=== PATIENT | male | born 1970 | race African-American/Black ===

== ENCOUNTER → 2018-05-13 | Outpatient (REF) | payer OTHER ==
[2018-05-13 18:18] LABS: APPEARANCE, URINE TURBID (CLEAR); BACTERIA, URINE AUTO NEGATIVE (NEGATIVE); BILIRUBIN, URINE AUTO NEGATIVE (NEGATIVE); BLOOD, URINE BLOOD NEGATIVE (NEGATIVE); COLOR, URINE YELLOW (YELLOW); GLUCOSE, URINE (UA) AUTO NEGATIVE (NEGATIVE); KETONE, URINE AUTO NEGATIVE (NEGATIVE); LEUKOCYTE ESTERASE, URINE AUTO NEGATIVE (NEGATIVE); NITRITE, URINE AUTO NEGATIVE (NEGATIVE); PROTEIN, URINE AUTO 1+ mg/dL (NEGATIVE); RBC, URINE AUTO 1 /HPF (0-3); SQUAMOUS EPITHELIAL CELL UR AU 0 /HPF (0-6); UROBILINOGEN, URINE AUTO 0.2 mg/dL (0.0-2.0); WBC, URINE AUTO 2 /HPF (0-3)
== END ==
LOC: M SMT 16:42
PROVIDERS: ATTEND Nurse Practitioner Family
DX: R32 Unspecified urinary incontinence (principal)
CPT/HCPCS: 51798; 81001; 87086; G0463

== ENCOUNTER → 2018-07-05 | Outpatient (CLI) | payer OTHER | LOC: M SMT 11:10 | PROVIDERS: ATTEND Nurse Practitioner Family | DX: C61 Malignant neoplasm of prostate (principal) ==

== ENCOUNTER → 2018-07-20 | Outpatient (CLI) | payer OTHER ==
--- NOTE | 2018-07-21 05:22 | REP ---
Clinical: Left groin pain. Technique: Real time abarca scale and color Doppler evaluation using linear high frequency transducer. Findings: The right testicle measures 4.0 x 2.0 x 3.5 cm and appears normal in contour, size, echogenicity, and vascularity. Incidental right epididymal cyst measures 5 x 2 x 3 mm. No hydrocele. No varicocele. The left testicle measures 4.9 x 2.0 x 3.0 cm and includes a small 1.6 mm hyperechoic focus with adjacent vessel otherwise nonspecific in appearance. Left epididymis appears normal. No hydrocele. No varicocele. Impression: 1. Small 1.6 mm hyperechoic focus in the left testicle with adjacent vessel is nonspecific and of uncertain clinical significance. Consider follow-up examination at 3-6 months. Electronically Signed by Tee Barnett MD 07/21/2018 05:14 A
== END ==
LOC: M RAD 12:02
PROVIDERS: ATTEND Nurse Practitioner Family
DX: R10.30 Lower abdominal pain, unspecified (principal); N50.3 Cyst of epididymis; N50.89 Other specified disorders of the male genital organs

== ENCOUNTER → 2018-09-20 | Outpatient (REF) ==
--- NOTE | 2018-09-21 03:17 | REP ---
Clinical: Left shoulder pain. Technique: Internal rotation, external rotation, and Y view of the left shoulder. Findings: Subtle irregularity along the anterior/superior margin of the ossified glenoid rim cannot be excluded. The humeral head appears intact and normal. Subacromial space is normal. The acromioclavicular joint is age-appropriate. Surrounding soft tissues are unremarkable. Impression: Subtle irregularity involving the anterosuperior aspect of the glenoid rim cannot be excluded. Otherwise normal, age-appropriate examination. Electronically Signed by Tee Barnett MD 09/21/2018 03:08 A
--- NOTE | 2018-09-21 03:19 | REP ---
Clinical: Lower back pain. Technique: AP, lateral, coned-down views of the lumbosacral spine. Findings: Alignment and lordosis maintained. No acute fracture / compression injury or subluxation. Mild multilevel degenerative change include subtle endplate sclerosis with minimal disc space narrowing at L4-5 and L5-S1. Impression: Mild degenerative spondylosis. Electronically Signed by Tee Barnett MD 09/21/2018 03:11 A
== END ==
LOC: M SMT 13:08
PROVIDERS: ATTEND Internal Medicine
DX: Z02.71 Encounter for disability determination (principal)

== ENCOUNTER → 2019-01-12 | Outpatient (CLI) | payer OTHER | LOC: M SMT 14:55 | PROVIDERS: ATTEND Nurse Practitioner Family | DX: C61 Malignant neoplasm of prostate (principal) ==

== ENCOUNTER → 2019-07-20 | Outpatient (REF) | payer OTHER | LOC: M LABSMT 09:15 | PROVIDERS: ATTEND Nurse Practitioner Family | DX: C61 Malignant neoplasm of prostate (principal) ==

== ENCOUNTER → 2019-08-09 | Outpatient (CLI) | payer OTHER ==
--- NOTE | 2019-08-09 14:48 | REP ---
Clinical: Follow up abnormal left testicular finding. Technique: Real time abarca scale and color Doppler evaluation using linear high frequency transducer. Comparison: 07/20/2018. Findings: The right testicle and epididymis are essentially normal and stable without evidence for mass lesion, infectious/inflammatory process, or torsion. Current examination demonstrates small 2 mm epididymal head cyst. No varicoceles. Mild tubular ectasia of the vas deferens noted. No right hydrocele. The left testicle and epididymis are stable and essentially normal without significant mass lesion, infectious/inflammatory process, or torsion. The previously identified 2 mm hyperechoic focus is again identified and unchanged. This may represent small nonshadowing calcification. Epididymal head cyst measures 6 mm. Mild tubular ectasia of the vas deferens is noted. No varicoceles. No hydrocele. Right testicle measures 4.8 x 2.3 x 3.3 cm. Left testicle measures 5.0 x 3.0 x 3.1 cm. Impression: 1. Previously noted 2 mm hyperechoic focus in the left testicle remains stable and is likely insignificant, possibly representing small nonshadowing calcification. 2. Otherwise, relatively nonspecific and insignificant findings as described above. Electronically Signed by Tee Barnett MD 08/09/2019 02:40 P
== END ==
LOC: M RAD 13:40
PROVIDERS: ATTEND Nurse Practitioner Family
DX: N50.9 Disorder of male genital organs, unspecified (principal)

== ENCOUNTER → 2020-02-09 | Outpatient (CLI) | payer OTHER | LOC: M PLALAB 09:12 | PROVIDERS: ATTEND Nurse Practitioner Family | DX: C61 Malignant neoplasm of prostate (principal) ==

== ENCOUNTER → 2020-08-08 | Outpatient (REF) | payer OTHER | LOC: M PLALAB 13:46 | PROVIDERS: ATTEND Urology | DX: C61 Malignant neoplasm of prostate (principal) ==

== ENCOUNTER → 2021-08-20 | Outpatient (CLI) | payer OTHER | LOC: M PLALAB 09:51 | PROVIDERS: ATTEND Urology | DX: C61 Malignant neoplasm of prostate (principal) ==

== ENCOUNTER → 2021-10-02 | Outpatient (CLI) | payer OTHER ==
[~2021-10-02] VITALS: Ht 180.3 cm; Wt 98.8 kg
[~2021-10-02] MED LIST: ALBU8.5H INH; AMLO1TAB25 PO; HYDR-3490 PO; HYDR-643 PO; LORA-622 PO; METO1TAB7 PO; NAPR-855 PO; OXYB10TA23 PO; SERT-141 PO; TERB250T91 PO; VIAG100T PO; VITA100093 PO
== END ==
LOC: M ONCR 13:41
PROVIDERS: ATTEND General Practice
DX: C61 Malignant neoplasm of prostate (principal); R97.21 Rising PSA following treatment for malignant neoplasm of prostate; N52.31 Erectile dysfunction following radical prostatectomy; N39.3 Stress incontinence (female) (male); Z90.79 Acquired absence of other genital organ(s); Z79.51 Long term (current) use of inhaled steroids; Z79.899 Other long term (current) drug therapy

== ENCOUNTER → 2021-10-27 | Outpatient (CLI) | payer OTHER | LOC: M PLALAB 10:51 | PROVIDERS: ATTEND General Practice | DX: C61 Malignant neoplasm of prostate (principal) ==

== ENCOUNTER → 2021-11-06 | Outpatient (CLI) | payer OTHER | LOC: M ONCR 09:19 | PROVIDERS: ATTEND General Practice | DX: R97.21 Rising PSA following treatment for malignant neoplasm of prostate (principal); Z85.46 Personal history of malignant neoplasm of prostate; Z79.899 Other long term (current) drug therapy; Z90.79 Acquired absence of other genital organ(s) ==

== ENCOUNTER → 2022-01-23 | Outpatient (CLI) | payer OTHER | LOC: M PLALAB 11:38 | PROVIDERS: ATTEND General Practice | DX: C61 Malignant neoplasm of prostate (principal) ==

== ENCOUNTER → 2022-01-28 | Outpatient (CLI) | payer OTHER | LOC: M ONCR 13:56 | PROVIDERS: ATTEND General Practice | DX: Z08 Encounter for follow-up examination after completed treatment for malignant neoplasm (principal); Z85.46 Personal history of malignant neoplasm of prostate; R97.21 Rising PSA following treatment for malignant neoplasm of prostate; Z79.1 Long term (current) use of non-steroidal anti-inflammatories (NSAID); Z79.51 Long term (current) use of inhaled steroids; Z79.899 Other long term (current) drug therapy; Z90.79 Acquired absence of other genital organ(s) ==

== ENCOUNTER → 2022-07-27 | Outpatient (CLI) | payer OTHER ==
[~2022-07-27] MED LIST changes: +OXYB15TA14 PO
== END ==
LOC: M PLALAB 08:27
PROVIDERS: ATTEND General Practice
DX: Z80.42 Family history of malignant neoplasm of prostate (principal)

== ENCOUNTER → 2022-07-28 | Outpatient (CLI) | payer OTHER | LOC: M ONCR 13:29 | PROVIDERS: ATTEND General Practice | DX: C61 Malignant neoplasm of prostate (principal); R32 Unspecified urinary incontinence; Z79.899 Other long term (current) drug therapy; Z90.79 Acquired absence of other genital organ(s) ==

== ENCOUNTER → 2023-01-28 | Outpatient (CLI) | payer OTHER ==
[~2023-01-28] MED LIST changes: +AMLO1TAB24 PO; +LOSA100T46 PO
== END ==
LOC: M ONCR 10:54
PROVIDERS: ATTEND General Practice
DX: C61 Malignant neoplasm of prostate (principal); R97.20 Elevated prostate specific antigen [PSA]; R03.0 Elevated blood-pressure reading, without diagnosis of hypertension; Z71.2 Person consulting for explanation of examination or test findings; Z79.899 Other long term (current) drug therapy; Z90.79 Acquired absence of other genital organ(s)
CPT/HCPCS: 36415; 84153; G0463

== ENCOUNTER → 2023-03-08 | Outpatient (CLI) | payer OTHER | LOC: M PLALAB 10:59 | PROVIDERS: ATTEND Urology | DX: C61 Malignant neoplasm of prostate (principal) ==

== ENCOUNTER → 2023-07-28 | Outpatient (CLI) | payer OTHER | LOC: M PLALAB 08:49 | PROVIDERS: ATTEND General Practice | DX: C61 Malignant neoplasm of prostate (principal) ==

== ENCOUNTER → 2023-07-29 | Outpatient (CLI) | payer OTHER | LOC: M ONCR 09:53 | PROVIDERS: ATTEND General Practice | DX: Z08 Encounter for follow-up examination after completed treatment for malignant neoplasm (principal); Z85.46 Personal history of malignant neoplasm of prostate; R97.21 Rising PSA following treatment for malignant neoplasm of prostate; Z71.2 Person consulting for explanation of examination or test findings; Z79.1 Long term (current) use of non-steroidal anti-inflammatories (NSAID); Z79.899 Other long term (current) drug therapy; Z90.79 Acquired absence of other genital organ(s) ==

== ENCOUNTER → 2023-08-24 | Outpatient (CLI) | payer OTHER | LOC: M RAD 13:16 | PROVIDERS: ATTEND Internal Medicine Pulmonary Disease | DX: R06.02 Shortness of breath (principal) ==

== ENCOUNTER → 2023-09-07 | Outpatient (CLI) | payer OTHER | LOC: M CARPUL 12:21 | PROVIDERS: ATTEND Internal Medicine Pulmonary Disease | DX: R06.02 Shortness of breath (principal) ==

== ENCOUNTER → 2023-09-16 | Outpatient (CLI) | payer OTHER ==
[~2023-09-16] MED LIST changes: +METHACHOLINE KIT (6 VIAL.NEB PREMIX) INH ONE
== END ==
LOC: M CARPUL 13:50
PROVIDERS: ATTEND Internal Medicine Pulmonary Disease
DX: R06.02 Shortness of breath (principal)
CPT/HCPCS: 94070; 95070; J7674

== ENCOUNTER → 2024-01-10 | Outpatient (CLI) | payer OTHER ==
[~2024-01-10] MED LIST changes: -METHACHOLINE KIT (6 VIAL.NEB PREMIX) INH ONE
== END ==
LOC: M RAD 14:59
PROVIDERS: ATTEND Internal Medicine Pulmonary Disease
DX: R91.8 Other nonspecific abnormal finding of lung field (principal)

== ENCOUNTER → 2024-01-28 | Outpatient (CLI) | payer OTHER | LOC: M PLALAB 13:47 | PROVIDERS: ATTEND General Practice | DX: C61 Malignant neoplasm of prostate (principal) ==

== ENCOUNTER → 2024-02-01 | Outpatient (CLI) | payer OTHER | LOC: M ONCR 09:45 | PROVIDERS: ATTEND General Practice | DX: Z08 Encounter for follow-up examination after completed treatment for malignant neoplasm (principal); I12.9 Hypertensive chronic kidney disease with stage 1 through stage 4 chronic kidney disease, or unspecified chronic kidney disease; N18.9 Chronic kidney disease, unspecified; R73.03 Prediabetes; R97.21 Rising PSA following treatment for malignant neoplasm of prostate; Z79.899 Other long term (current) drug therapy; Z85.46 Personal history of malignant neoplasm of prostate ==

== ENCOUNTER → 2024-02-21 | Outpatient (CLI) | payer OTHER | LOC: M PLALAB 11:17 | PROVIDERS: ATTEND Urology | DX: C61 Malignant neoplasm of prostate (principal) ==

== ENCOUNTER → 2024-09-11 | Outpatient (CLI) | payer OTHER | LOC: M PLALAB 08:43 | PROVIDERS: ATTEND Urology | DX: C61 Malignant neoplasm of prostate (principal) ==

== ENCOUNTER → 2024-12-20 | Outpatient (CLI) | payer OTHER ==
[~2024-12-20] MED LIST changes: +LORA-1164 PO; -LORA-622 PO
== END ==
LOC: M PLALAB 09:24
PROVIDERS: ATTEND Urology
DX: C61 Malignant neoplasm of prostate (principal)

== ENCOUNTER → 2025-01-31 | Outpatient (CLI) | payer OTHER | LOC: M ONCR 08:47 | PROVIDERS: ATTEND General Practice | DX: C61 Malignant neoplasm of prostate (principal); Z90.79 Acquired absence of other genital organ(s); Z79.899 Other long term (current) drug therapy | CPT/HCPCS: 36415; 84153; G0463 ==

== ENCOUNTER → 2025-03-16 | Outpatient (CLI) | payer OTHER | LOC: M RAD 12:37 | PROVIDERS: ATTEND Internal Medicine Pulmonary Disease | DX: R91.8 Other nonspecific abnormal finding of lung field (principal) ==